=== PATIENT | male | born 1965 | race African-American/Black ===

== ENCOUNTER 2017-02-10 18:45 | Emergency (ER) | payer BC, OTHER ==
[~2017-02-10] VITALS: Ht 182.9 cm; Wt 122.5 kg
[~2017-02-10 18:45] MED LIST: BUDE10.22 IH; LISI-338 PO
[2017-02-10] MEDS ORDERED: ONDANSETRON PF 4 MG/2 ML VIAL. IV ONE ×2 (20:00→22:00)
[2017-02-10 20:24] LABS: BASO # 0.1 x10^3/uL (0.0-0.2); BASO % 1 % (0-3); EOS % 0 % (0-3); HEMATOCRIT 51.3 % (39.0-53.0); HEMOGLOBIN 17.6 g/dL (13.0-17.5); LYMPH # 0.6 x10^3/uL (1.0-4.8); LYMPH % 7 % (24-48); MEAN CORPUSCULAR HEMOGLOBIN 31 pg (25-35); MEAN CORPUSCULAR HGB CONC 34 g/dL (31-37); MEAN CORPUSCULAR VOLUME 90 fL (79-100); MONO % 13 % (0-9); NEUT % 80 % (31-73); PLATELET COUNT 223 x10^3/uL (140-400); RED BLOOD COUNT 5.68 x10^6/uL (4.30-5.70); RED CELL DISTRIBUTION WIDTH 14.5 % (11.5-14.5); WHITE BLOOD COUNT 9.7 x10^3/uL (4.0-11.0)
[2017-02-10] MEDS ORDERED: IV NORMAL SALINE 1000ML BAG 1,000 ML IV ONE ×2 (20:30→22:00)
[2017-02-10 20:34] LABS: CALCIUM 9.2 mg/dL (8.5-10.1); GFR 95.7; POTASSIUM 3.6 mmol/L (3.5-5.1)
[2017-02-10 20:40] LABS: ALBUMIN 4.3 g/dL (3.4-5.0); ALBUMIN/GLOBULIN RATIO 1.1 (1.0-1.7); TOTAL BILIRUBIN 1.2 mg/dL (0.2-1.0); TOTAL PROTEIN 8.2 g/dL (6.4-8.2)
[2017-02-10 21:25] LABS: BILIRUBIN,URINE NEGATIVE (NEG); GLUCOSE,URINE NEGATIVE (NEG); NITRITE,URINE NEGATIVE (NEG); PH,URINE 6.5; PROTEIN,URINE 100 mg/dL (NEG-TRACE); UROBILINOGEN,URINE 0.2 mg/dL (0.2 mg/dL)
[2017-02-10 21:33] LABS: BACTERIA,URINE 0 /HPF (0-FEW); RBC,URINE 0 /HPF (0-2); WBC,URINE OCC /HPF (0-4)
[2017-02-10] MEDS ORDERED: KETOROLAC 15 MG/ML VIAL. IV ONE (22:00)
[2017-02-10] MEDS ORDERED: CONTRAST GIVEN MC PRN (22:00)
[2017-02-10] MEDS ORDERED: IOHEXOL 300 MG/ML 100ML VIAL. IV ONE (22:00)
[2017-02-10] MEDS ORDERED: HYDROmorphone 2 MG/ML VIAL IV ONE (22:00)
--- NOTE | 2017-02-10 22:16 | RAD ---
Indication: Abdominal pain with nausea and vomiting and diarrhea for 3 days. TECHNIQUE: CT abdomen and pelvis with 75 mL of Omnipaque 300 with multiplanar reformats. COMPARISON: None FINDINGS: Heart is normal in size. No pericardial or pleural effusion. Diffuse hepatic steatosis. No focal hepatic lesion. Spleen within normal limits. No radiopaque gallstones. Pancreas within normal limits. Adrenal glands within normal limits. No nephrolithiasis or hydronephrosis. No retroperitoneal or pelvic adenopathy. Motion artifact noted in the distal pelvis/upper thighs limiting optimal evaluation. No bowel obstruction. Normal appendix. Bladder within normal limits. Prostate and seminal vesicles show no mass lesion. Small bilateral fat-containing hernias. No suspicious bony lesion. IMPRESSION: 1. No acute findings. 2. Diffuse hepatic steatosis. Electronically signed by: David Davila DO (02/10/2017 10:13 PM) [facility]
[2017-02-10] MEDS ORDERED: METOCLOPRAMIDE HCL 10 MG/2 ML VIAL. IV ONE (23:30)
[2017-02-10 23:32] VITALS: BP 154/89
[2017-02-10] MEDS ORDERED: ONDA4TAB10 SL (23:37)
--- NOTE | 2017-02-10 23:37 | PHYS DOC ---
Past Medical History Past Medical History: Hypertension Past Surgical History: Knee Replacement Additional Past Surgical Histo: lymph node biopsy Alcohol Use: Heavy Additional Information: drinks a pint "and some beer" daily. Drug Use: None Adult General Chief Complaint Chief Complaint: NAUSEA/VOMITING/DIARRHA HPI HPI Patient is a 51 year old gentleman who presents here today complaining of nausea vomiting and diarrhea times one day. Patient has any fevers. Patient reports she been having sweats. Patient complains of diffuse abdominal cramping. Patient has a dysuria frequency urgency. Patient reports decreased by mouth intake over the last 24 hours. Patient reports that he did have mac & cheese earlier today and was not able keep down. Patient reports a history of hypertension. No diabetes lung or liver or kidney problems. Patient denies any surgeries. Patient denies any tobacco or drugs. Patient reports he drinks approximately 1 pint of liquor a day. Patient has any history of withdrawal. Patient has no known drug allergies. Patient denies any melena or bright red blood per rectum. Patient denies any hematochezia. Patient denies any coffee-ground emesis. Patient has any other sick family contacts. Patient has any chest pain or shortness of breath. Review of systems: Constitutional: Denies fever or chills Eyes: Denies change in visual acuity, redness, or eye pain HENT: Denies nasal congestion or sore throat Respiratory: Denies cough or shortness of breath Physical exam Constitutional: Well developed, well nourished, no acute distress, non-toxic appearance. HENT: Normocephalic, atraumatic, bilateral external ears normal, oropharynx moist, no oral exudates, nose normal. Eyes: PERRLA, EOMI, conjunctiva normal, no discharge. Neck: Normal range of motion, no tenderness, supple, no stridor. Cardiovascular:Heart rate regular rhythm, Lungs & Thorax: Bilateral breath sounds clear to auscultation Abdomen: Bowel sounds normal, soft, no tenderness, no masses, no pulsatile masses. Skin: Warm, dry, no erythema, no rash. Back: No tenderness, no CVA tenderness. Extremities: No tenderness, no cyanosis, no clubbing, ROM intact, no edema. Neurologic: Alert and oriented X 3, normal motor function, normal sensory function, no focal deficits noted. Psychologic: Affect normal, judgement normal, mood normal. Assessment and plan This is a 51-year-old gentleman who presents to the ER today secondary to nausea vomiting and diarrhea. Patient's ER workup is been unremarkable. Patient had a normal CBC, CMP, UA. Patient had a CT scan of his abdomen pelvis performed to rule out appendicitis. Patient's CT abdomen and pelvis was unremarkable. There is no evidence of obstruction, inflammation, appendicitis. While in the ER the patient has been given 2 L of normal saline as well as Zofran and Reglan with significant improvement in his symptoms. Patient has been given ice chips and has been tolerating by mouth liquids in the ED with no difficulty. Patient does not present with any signs or symptoms of be consistent with an acute surgical abdomen at this time. Patient be discharged home with a prescription for Zofran, and instructions to follow-up with his primary care physician in one to 2 days for reevaluation. Patient was instructed to return to the ER for reevaluation if his symptoms are not resolved within 12-24 hours. Current Medications Current Medications Current Medications Medications (Trade) Dose Ordered Sig/Umair Start Time Stop Time Status Last Admin Dose Admin Hydromorphone HCl (Dilaudid) 0.5 mg 1X ONCE 02/10/17 22:00 02/10/17 22:01 DC 02/10/17 22:07 0.5 MG Info (Do NOT chart on this entry -- for MONITORING) 1 each PRN DAILY PRN 02/10/17 22:00 02/11/17 00:29 DC Iohexol (Omnipaque 300 Mg/ml) 75 ml 1X ONCE 02/10/17 22:00 02/10/17 22:01 DC 02/10/17 21:53 75 ML Ketorolac Tromethamine (Toradol) 15 mg 1X ONCE 02/10/17 22:00 02/10/17 22:01 DC 02/10/17 22:07 15 MG Metoclopramide HCl (Reglan Vial) 10 mg 1X ONCE 02/10/17 23:30 02/10/17 23:31 DC 02/10/17 23:19 10 MG Ondansetron HCl (Zofran) 4 mg 1X ONCE 02/10/17 22:00 02/10/17 22:01 DC 02/10/17 22:06 4 MG Sodium Chloride 1,000 ml @ 1,000 mls/hr 1X ONCE 02/10/17 22:00 02/10/17 22:59 DC 02/10/17 22:06 1,000 MLS/HR Allergies Allergies Allergies Coded Allergies Type Severity Reaction Last Updated Verified acetaminophen Allergy Intermediate RASH AND ITCHING 02/10/17 Yes hydrocodone Allergy Intermediate RASH AND ITCHING 02/10/17 Yes Current Patient Data Vital Signs Vital Signs Date Time Temp Pulse Resp B/P (MAP) Pulse Ox O2 Delivery O2 Flow Rate FiO2 02/10/17 23:32 98 18 154/89 (110) 96 Room Air 02/10/17 19:59 97.9 97.9 Lab Values Laboratory Tests Test 02/10/17 19:56 02/10/17 20:11 Urine Collection Type Unknown Urine Color Yellow Urine Clarity Clear Urine pH 6.5 Urine Specific [place] 1.025 Urine Protein 100 mg/dL (NEG-TRACE) Urine Glucose (UA) Negative mg/dL (NEG) Urine Ketones (Stick) >=80 mg/dL (NEG) Urine Blood Negative (NEG) Urine Nitrite Negative (NEG) Urine Bilirubin Negative (NEG) Urine Urobilinogen Dipstick 0.2 mg/dL (0.2 mg/dL) Urine Leukocyte Esterase Negative (NEG) Urine RBC 0 /HPF (0-2) Urine WBC Occ /HPF (0-4) Urine Bacteria 0 /HPF (0-FEW) Urine Mucus Marked /LPF White Blood Count 9.7 x10^3/uL (4.0-11.0) Red Blood Count 5.68 x10^6/uL (4.30-5.70) Hemoglobin 17.6 g/dL (13.0-17.5) H Hematocrit 51.3 % (39.0-53.0) Mean Corpuscular Volume 90 fL (79-100) Mean Corpuscular Hemoglobin 31 pg (25-35) Mean Corpuscular Hemoglobin Concent 34 g/dL (31-37) Red Cell Distribution Width 14.5 % (11.5-14.5) Platelet Count 223 x10^3/uL (140-400) Neutrophils (%) (Auto) 80 % (31-73) H Lymphocytes (%) (Auto) 7 % (24-48) L Monocytes (%) (Auto) 13 % (0-9) H Eosinophils (%) (Auto) 0 % (0-3) Basophils (%) (Auto) 1 % (0-3) Neutrophils # (Auto) 7.8 x10^3uL (1.8-7.7) H Lymphocytes # (Auto) 0.6 x10^3/uL (1.0-4.8) L Monocytes # (Auto) 1.2 x10^3/uL (0.0-1.1) H Eosinophils # (Auto) 0.0 x10^3/uL (0.0-0.7) Basophils # (Auto) 0.1 x10^3/uL (0.0-0.2) Sodium Level 141 mmol/L (136-145) Potassium Level 3.6 mmol/L (3.5-5.1) Chloride Level 100 mmol/L (98-107) Carbon Dioxide Level 26 mmol/L (21-32) Anion Gap 15 (6-14) H Blood Urea Nitrogen 14 mg/dL (8-26) Creatinine 1.0 mg/dL (0.7-1.3) Estimated GFR (Cockcroft-Gault) 95.7 BUN/Creatinine Ratio 14 (6-20) Glucose Level 126 mg/dL (70-99) H Calcium Level 9.2 mg/dL (8.5-10.1) Total Bilirubin 1.2 mg/dL (0.2-1.0) H Aspartate Amino Transferase (AST) 115 U/L (15-37) H Alanine Aminotransferase (ALT) 81 U/L (16-63) H Alkaline Phosphatase 95 U/L (46-116) Total Protein 8.2 g/dL (6.4-8.2) Albumin 4.3 g/dL (3.4-5.0) Albumin/Globulin Ratio 1.1 (1.0-1.7) Lipase 97 U/L (73-393) Laboratory Tests 02/10/17 20:11 Laboratory Tests 02/10/17 20:11 EKG EKG [] Radiology/Procedures Radiology/Procedures [] Course & Med Decision Making Course & Med Decision Making Pertinent Labs and Imaging studies reviewed. (See chart for details) [] Dragon Disclaimer Dragon Disclaimer This electronic medical record was generated, in whole or in part, using a voice recognition dictation system. Departure Departure Impression: Primary Impression: Nausea vomiting and diarrhea Additional Impressions: Dehydration Abdominal pain Disposition: HOME, SELF-CARE Condition: IMPROVED Referrals: TARAH VALENZUELA MD (PCP) Patient Instructions: Abdominal Pain (Nonspecific), Dehydration, Adult, Diarrhea, Nausea and Vomiting Scripts Ondansetron (ZOFRAN ODT) 4 Mg Tab.rapdis 1 TAB SL Q6HRS Y for NAUSEA, #12 TAB Prov: DOMINGA KENDRICK MD 02/10/17 Problem Qualifiers DOMINGA KENDRICK MD Feb 10, 2017 23:37
== END 2017-02-11 00:29 | disposition home or self-care (01) ==
LOC: ER 18:45
DX: E86.0 Dehydration (principal); R11.2 Nausea with vomiting, unspecified; R10.84 Generalized abdominal pain; R19.7 Diarrhea, unspecified; R30.0 Dysuria; I10 Essential (primary) hypertension; F10.10 Alcohol abuse, uncomplicated; Z88.5 Allergy status to narcotic agent; Z88.6 Allergy status to analgesic agent
CPT/HCPCS: 36415; 74177; 80053; 81001; 83690; 85025; 96361; 96374; 96375; 96376; 99285; J1170; J1885; J2405; J2765; J7030; Q9967